=== PATIENT | female | born 1955 | race Caucasian/White ===

== ENCOUNTER → 2017-02-02 | Outpatient (CLI) | payer OTHER ==
--- NOTE | 2017-02-02 18:29 | PCVCIMAG ---
APPROVED REPORT Exam: Stress Echocardiogram Indication: Murmur, HTN, Dyspnea Patient Location: Echo lab Stress Nurse: Gilma Blanco RN Status: routine Ht: 5 ft 3 in HR: 62 bpm BP: 128/80 mmHg Rhythm: NSR Procedure The patient underwent an Exercise Stress Test using the Nicholas Protocol. Blood pressure, heart rate, and EKG were monitored. An Echocardiogram was performed by stage technician in four stages in quad fashion. At peak stress, four selected images were obtained and placed side by side with resting images for comparison. Stress Test Details Stress Test: Exercise stress testing was performed using a Nicholas protocol. HR Resting HR: 62 bpmMax Heart Rate (APMHR): 158 bpm Max HR Achieved: 139 bpmTarget HR (85% APMHR): 134 bpm % of APMHR: 87 Recovery HR: 90 bpm HR response to stress: Normal HR response to stress BP Resting BP: 128/80 mmHg Max BP: 164/70 mmHg Recovery BP: 128/68 mmHg ECG Resting ECG: Sinus Rhythm Stress ECG: Sinus Rhythm Recovery ECG: Sinus Rhythm Clinical Reason for Termination: Maximal effort Stress Symptoms: Dyspnea Exercise duration: 6 min 00 sec Highest Stage Achieved: Stage 2: 2.5 mph at 12% grade. Exercise capacity: 7.00 METs Overall Exercise Capacity for Age: Average Pre-Stress Echo The resting Echocardiogram showed normal left ventricular contractility with an estimated Ejection Fraction of about >55%. Normal wall motion in all segments on baseline images. Aortic valve slcerosis is present, no Aortic valve stenosis. Post-Stress Echo The stress Echocardiogram showed normal left ventricular contractility with an estimated Ejection Fraction of about 60-65%. Normal augmentation of wall motion in all segments on post stress images. Clinical No clinical or ECG evidence for ischemia. Conclusion Clinical Response: Non-ischemic Exercise Capacity: Average Stress ECG Response: Non-ischemic Stress Echo Images: Non-ischemic The left ventricle is normal in size and wall thickness in both the rest and stress images. Aortic valve sclerosis is present with out evidence of stenosis. Other Information Study Quality: Adequate <Conclusion> The left ventricle is normal in size and wall thickness in both the rest and stress images. Aortic valve sclerosis is present with out evidence of stenosis.
== END | disposition home or self-care (01) ==
LOC: PCVCIMAG 16:12
PROVIDERS: ATTEND Internal Medicine Cardiovascular Disease
DX: I10 Essential (primary) hypertension (principal); R01.1 Cardiac murmur, unspecified; R06.09 Other forms of dyspnea; I35.8 Other nonrheumatic aortic valve disorders
CPT/HCPCS: 93325; 93351